=== PATIENT | male | born 1945 | race Caucasian/White ===

== ENCOUNTER 2020-12-22 07:02 | Day surgery (SDC) | payer MEDICARE, OTHER ==
[2020-12-22] MEDS ORDERED: fentaNYL 100 MCG/2 ML SDV ONE (07:25)
[2020-12-22] MEDS ORDERED: Propofol 200 MG/20 ML SDV ONE (07:25)
[2020-12-22] MEDS ORDERED: Sodium Chloride 0.9% 1,000 ML IV SCH (07:30)
--- NOTE | 2020-12-22 14:49 | OR ---
DATE OF PROCEDURE: 12/22/2020 SURGEON: Miguel Ángel Maier MD PROCEDURE PERFORMED: Colonoscopy. FINDINGS: 1. Sigmoid colon polyp, approximately 5 mm, completely removed using hot snare wire device. 2. Diverticulosis, mild, without evidence of diverticulitis or bleeding. COMPLICATIONS: None. VB NET PROGRAMMER: None. ANESTHESIA: MAC. PREOPERATIVE DIAGNOSIS: Screening colonoscopy. POSTOPERATIVE DIAGNOSIS: Screening colonoscopy. RISKS: Risks, benefits, alternatives, and limitations including, but not limited to infection, bleeding, perforation, false positives, and false negatives were explained to the patient, and he wished to proceed. PROCEDURE IN DETAIL: The patient was placed in the left lateral decubitus position. Digital rectal exam was performed without abnormality. Scope was introduced and advanced atraumatically to the ileocecal valve. A photo was taken of the appendiceal orifice. The scope was brought back to the ascending, transverse, descending colon, and retroflexed. No evidence of old or new blood. No masses. No evidence of colitis. No abnormalities on retroflex. The patient did have diverticulosis, was described as mild, mostly limited to sigmoid colon. Greater than 8 minutes was spent on removing the scope. The prep was tolerable. Approximately 90% of the luminal surface could be seen. The patient tolerated the procedure well. Miguel Ángel Maier MD /[id number]
== END 2020-12-22 10:18 | disposition home or self-care (01) ==
LOC: JP.SDS 07:02
PROVIDERS: ATTEND Surgery
DX: Z12.11 Encounter for screening for malignant neoplasm of colon (principal); K57.30 Diverticulosis of large intestine without perforation or abscess without bleeding; D12.5 Benign neoplasm of sigmoid colon; E11.9 Type 2 diabetes mellitus without complications
CPT/HCPCS: J2704; J3010; J7030

== ENCOUNTER 2023-09-07 06:22 | Day surgery (SDC) | payer MEDICARE ==
[2023-09-07] MEDS ORDERED: Propofol 200 MG/20 ML SDV ONE ×2 (07:01→07:53)
[2023-09-07] MEDS ORDERED: fentaNYL 50 MCG/ML SDV ONE (07:01)
[2023-09-07] MEDS: Sodium Chloride 0.9% 1,000 ML IV SCH (07:19)
== END 2023-09-07 09:35 | disposition home or self-care (01) ==
LOC: JP.SDS 06:22
PROVIDERS: ATTEND Surgery
DX: Z12.11 Encounter for screening for malignant neoplasm of colon (principal); K63.5 Polyp of colon; K57.30 Diverticulosis of large intestine without perforation or abscess without bleeding
CPT/HCPCS: 45380; 45385; J2704; J3010; J7030; 00811-QZ